=== PATIENT | female | born 1955 ===

== ENCOUNTER 2016-10-28 08:19 | Day surgery (SDC) | payer OTHER ==
[2016-10-28 08:47] VITALS: BMI 24.2
--- NOTE | 2016-10-28 11:12 | CP.SDSHP ---
Same Day Surgery H & P - History Proposed Procedure: EGD Pre-Op Diagnosis: SEE NOTES - Previous Medical/Surgical History Misc: Other Pain: 4.Moderate Pain - Allergies Allergies: Allergies Sulfa (Sulfonamide Antibiotics) Allergy (Intermediate, Verified 08/13/16 16:55) VOMITING - Physical Exam General Appearance: N Vital Signs: Vital Signs 10/28/16 08:59 Temperature 98.2 F Pulse Rate 62 Respiratory 19 Rate O2 Sat by Pulse 100 Oximetry Mental Status: Alert & Oriented x3 Neuro: WNL Heart: WNL Lungs: WNL GI: Other - {Optional Preform as Required} Breast: WNL Abdomen: Other Rectal: Other Integument: WNL : WNL Ortho: Other ENT: WNL - Impression Pt. Evaluated Today:Candidate for Anesthesia & Procedure: Yes - Date & Time Time: 11:12 Short Stay Discharge - Short Stay Discharge Admitting Diagnosis/Reason for Visit: DYSPEPSIA Disposition: HOME/ ROUTINE
[2016-10-28] MEDS ORDERED: Belladonna-Phenobarbital PO STA (11:13)
[2016-10-28] MEDS ORDERED: Pantoprazole 40 mg EC Tab PO STA (11:13)
[2016-10-28] MEDS ORDERED: Propofol 10 mg/ml Inj (20 ML) ONE (11:13)
[2016-10-28] MEDS ORDERED: Lactated Ringer's 1,000 ML IV SCH (11:15)
[2016-10-28 11:49] VITALS: TEMP 98.4
[2016-10-28 12:06] VITALS: BP 116/55; PULSE 60; RESP 18; O2SAT 100
== END 2016-10-28 12:29 | disposition home or self-care (01) ==
LOC: C.ENDO 08:19
PROVIDERS: ATTEND Specialist
DX: R10.13 Epigastric pain (principal); K20.9 Esophagitis, unspecified; K44.9 Diaphragmatic hernia without obstruction or gangrene
CPT/HCPCS: 43239; 88305; 88342; J2704; J7120

== ENCOUNTER 2017-07-05 10:15 | Emergency (ER) | payer OTHER ==
[2017-07-05 10:16] VITALS: BMI 24.2
[2017-07-05 10:28] VITALS: BP 117/70; PULSE 70; RESP 16; TEMP 98.7; O2SAT 99
--- NOTE | 2017-07-05 11:13 | C.PDOC ---
History Of Present Illness 62 yr old female presents to the ER with complaints of left gluteal area pain which runs down the left upper leg for the past 1 month. Patient states the pain is made worse when is sitting down, states she has been taking Tylenol and Ibuprofen with no relief. Denies falls, fever, dysuria, rash, weakness or numbness. Time Seen by Provider: 07/05/17 10:28 Chief Complaint (Nursing): Lower Extremity Problem/Injury History Per: Patient History/Exam Limitations: no limitations Onset/Duration Of Symptoms: Days (1 month) Past Medical History Reviewed: Historical Data, Nursing Documentation, Vital Signs Vital Signs: Last Vital Signs Temp 98.7 F 07/05/17 10:26 Pulse 70 07/05/17 10:26 Resp 16 07/05/17 10:26 BP 117/70 07/05/17 10:26 Pulse Ox 99 07/05/17 11:21 - Medical History PMH: Arthritis, Colonic Polyps, Gastritis, Gall Bladder Disease (CHOLELITHIASIS) Surgical History: Endoscopy (2 YEARS AGO), Tonsillectomy - [facility] Procedures ENDO EXCISION/DEST OF LESION OR TISSUE OF STOMACH (08/15/14) ENDOSC POLYPECTOMY OF LG INTEST (08/17/14) Family History: States: No Known Family Hx - Social History Hx Tobacco Use: No Hx Alcohol Use: No Hx Substance Use: No - Immunization History Hx Tetanus Toxoid Vaccination: No Hx Influenza Vaccination: No Hx Pneumococcal Vaccination: No Review Of Systems Except As Marked, All Systems Reviewed And Found Negative. Constitutional: Negative for: Fever Genitourinary: Negative for: Dysuria Musculoskeletal: Positive for: Other ((+) Left gluteal pain radiating down the left upper leg) Skin: Negative for: Rash Neurological: Negative for: Weakness, Numbness Physical Exam - Physical Exam Appears: Non-toxic, In Acute Distress (Mild pain) Skin: Warm, Dry, No Rash Head: Atraumatic, Normacephalic Oral Mucosa: Moist Neck: Normal, Normal ROM, Supple Cardiovascular: Rhythm Regular, No Murmur Respiratory: Normal Breath Sounds, No Rales, No Rhonchi, No Stridor, No Wheezing Back: Normal Inspection, No CVA Tenderness, No Paraspinal Tenderness Extremity: Normal ROM (At right hip), No Swelling, Other (Left hip worsening pain with ROM. No point tenderness at gluteal area or posterior thigh.) Neurological/Psych: Oriented x3, Normal Speech, Normal Motor, Normal Sensation Gait: Steady ED Course And Treatment O2 Sat by Pulse Oximetry: 99 (RA) Pulse Ox Interpretation: Normal Progress Note: PLAN: Flexeril PO, Prednisone PO & Toradol IM. Disposition Counseled Patient/Family Regarding: Studies Performed, Diagnosis, Need For Followup, Rx Given - Disposition Referrals: [facility] [Outside] Disposition: HOME/ ROUTINE Disposition Time: 11:35 Condition: STABLE Additional Instructions: SEGUIMIENTO CON ELKINS MDICO / CLNICA EN 1-2 CANDELARIO USE MEDICAMENTOS SEGN LO INDICADO REGRESE AL DAVID DE EMERGENCIA SI LOS SNTOMAS EMPEORAN Prescriptions: Cyclobenzaprine [Cyclobenzaprine HCl] 10 mg PO BID PRN #15 tab PRN Reason: Muscle Spasm Naproxen 375 mg PO BID PRN #20 tablet PRN Reason: pain predniSONE [predniSONE Tab] 40 mg PO DAILY #6 tab Instructions: Piriformis Syndrome (ED) Forms: [employer] (Latvian) Print Language: SOUTH KOREAN - POA Present On Arrival: None - Clinical Impression Clinical Impression: Piriformis syndrome of left side - Scribe Statement The provider has reviewed the documentation as recorded by the Pamelaiblance Ruvalcaba Provider Attestation: All medical record entries made by the Pamelaiblance were at my direction and personally dictated by me. I have reviewed the chart and agree that the record accurately reflects my personal performance of the history, physical exam, medical decision making, and the department course for this patient. I have also personally directed, reviewed, and agree with the discharge instructions and disposition.
== END 2017-07-05 11:40 | disposition home or self-care (01) ==
LOC: C.ER 10:15
DX: G57.02 Lesion of sciatic nerve, left lower limb (principal)
CPT/HCPCS: 96372; 99283; J1885

== ENCOUNTER 2017-10-25 15:40 | Emergency (ER) | payer OTHER ==
[2017-10-25 15:40] VITALS: BMI 24.2
[2017-10-25 17:34] LABS: BASO # 0.1 K/uL (0.0-0.2); BASO % 0.7 % (0.0-2.0); EOS # 0.4 K/uL (0.0-0.7); EOS % 3.9 % (0.0-4.0); HEMOGLOBIN 13.5 g/dL (11.0-16.0); LYMPH # 2.6 K/uL (1.0-4.3); LYMPH % 26.4 % (20.0-40.0); MEAN CELL VOLUME 81.1 fL (81.0-99.0); MEAN CORPUSCULAR HEMOGLOBIN 27.3 pg (27.0-31.0); MEAN CORPUSCULAR HGB CONC 33.6 g/dL (33.0-37.0); MEAN PLATELET VOLUME 7.9 fL (7.2-11.7); MONO # 0.7 K/uL (0.0-0.8); MONO % 6.8 % (0.0-10.0); NEUT # 6.1 K/uL (1.8-7.0); NEUT % 62.2 % (50.0-75.0); RBC 4.96 Mil/uL (3.80-5.20); WHITE BLOOD COUNT 9.7 K/uL (4.8-10.8)
[2017-10-25 17:52] LABS: ALB/GLOB RATIO 1.1 (1.0-2.1); ALBUMIN 4.3 g/dL (3.5-5.0); ALT/SGPT 14 U/L (9-52); AST/SGOT 22 U/L (14-36); BLOOD UREA NITROGEN 24 mg/dL (7-17); CALCIUM 9.4 mg/dl (8.6-10.4); GFR AFRICAN-AMERICAN > 60; GFR NON-AFRICAN AMERICAN > 60
--- NOTE | 2017-10-25 18:13 | C.PDOC ---
History Of Present Illness 62yo female, presents to ED with complaints of right sided chest pain, upper back pain and radiating to right arm for the past 4 days. She reports the chest pain is "sharp" and associated with deep breathing. She states the pain also worsens with movement. She denies any trauma, cough, nausea, vomiting, diaphoresis, hemoptysis, or shortness of breath. She has no other medical complaints. Time Seen by Provider: 10/25/17 16:40 Chief Complaint (Nursing): Upper Extremity Problem/Injury History Per: Patient History/Exam Limitations: no limitations Onset/Duration Of Symptoms: Days (x 4) Quality: Sharp Past Medical History Vital Signs: Last Vital Signs Temp 97.5 F L 10/25/17 18:43 Pulse 56 L 10/25/17 18:43 Resp 18 10/25/17 18:43 BP 163/72 H 10/25/17 18:43 Pulse Ox 98 10/25/17 19:03 - Medical History PMH: Arthritis, Colonic Polyps, Gastritis, Gall Bladder Disease Denies: Chronic Kidney Disease Surgical History: Endoscopy, Tonsillectomy - [facility] Procedures ENDO EXCISION/DEST OF LESION OR TISSUE OF STOMACH (08/15/14) ENDOSC POLYPECTOMY OF LG INTEST (08/17/14) Family History: States: Unknown Family Hx - Social History Hx Tobacco Use: No Hx Alcohol Use: No Hx Substance Use: No - Immunization History Hx Tetanus Toxoid Vaccination: No Hx Influenza Vaccination: Yes Hx Pneumococcal Vaccination: No Review Of Systems Except As Marked, All Systems Reviewed And Found Negative. Constitutional: Negative for: Sweats Cardiovascular: Positive for: Chest Pain (worsens with movement, deep breathing) Respiratory: Negative for: Cough, Hemoptysis Gastrointestinal: Negative for: Nausea, Vomiting Musculoskeletal: Positive for: Arm Pain (right arm pain) Physical Exam - Physical Exam Appears: Non-toxic Skin: Normal Color, Warm, No Rash Head: Atraumatic, Normacephalic Eye(s): bilateral: Normal Inspection Oral Mucosa: Moist Throat: No Erythema, No Exudate Neck: Normal ROM, Supple Chest: Symmetrical, Tenderness (Right chest wall tenderness) Cardiovascular: Rhythm Regular, No Friction Rub, No Murmur Respiratory: Normal Breath Sounds Gastrointestinal/Abdominal: Normal Exam, Soft, No Tenderness Back: Muscle Spasm (right trapezeus spasm) Extremity: Normal ROM, No Calf Tenderness, No Swelling Neurological/Psych: Oriented x3, Normal Speech, Normal Motor Gait: Steady ED Course And Treatment - Laboratory Results Result Diagrams: 10/25/17 17:31 10/25/17 17:31 ECG: Interpreted By Me, Viewed By Me ECG Rhythm: Sinus Rhythm ECG Interpretation: Normal Rate From EC O2 Sat by Pulse Oximetry: 98 (RA) Pulse Ox Interpretation: Normal - Radiology CXR: Interpreted by Me CXR Interpretation: Yes: No Acute Disease. No: Infiltrates Medical Decision Making Medical Decision Making: Plan: --EKG --CXR --Labs --Flexeril 10mg PO --Toradol 30mg IVP On re-exam, the patient reports improvement of symptoms. Patient is sleeping the bed comfortably. Lungs are CTA, HEart is RRR. abdomen is soft, non-tender and the patient is tolerating Po well. Ambulatory in the ED with steady gait. Follow up with the medical doctor within 1-2 days. Return if worsened. Disposition - Disposition Referrals: Sedrick Brock DO [Staff Provider] - Disposition: HOME/ ROUTINE Disposition Time: 18:15 Condition: FAIR Additional Instructions: Follow up with the medical doctor within 1-2 days. Return if worsened. Prescriptions: Cyclobenzaprine [Flexeril] 5 mg PO TID #21 tab Naproxen [Naprosyn] 500 mg PO BID #20 tab Instructions: Costochondritis Forms: [facility] (Danish), Work Excuse - Clinical Impression Clinical Impression: Costochondritis - PA / BARMAN / Resident Statement MD/ has reviewed & agrees with the documentation as recorded. - Scribe Statement The provider has reviewed the documentation as recorded by the Scribe Daniela Walls All medical record entries made by the Scribe were at my direction and personally dictated by me. I have reviewed the chart and agree that the record accurately reflects my personal performance of the history, physical exam, medical decision making, and the department course for this patient. I have also personally directed, reviewed, and agree with the discharge instructions and disposition.
[2017-10-25 18:43] VITALS: BP 163/72; PULSE 56; RESP 18; TEMP 97.5
[2017-10-25 19:03] VITALS: O2SAT 98
--- NOTE | 2017-10-26 10:25 | RAD ---
Examination: Chest two view comparison: 06/05/2017 Findings: No pulmonary infiltrate. No pleural effusion or pneumothorax. Normal heart size. No mediastinal or hilar lymphadenopathy. No congestive change No osseous abnormality appreciated. Impression: No pulmonary infiltrate.
--- NOTE | 2017-10-26 11:55 | CARD ---
APPROVED REPORT EKG Measurement Heart [id number] <Conclusion> Normal sinus rhythm Normal ECG
== END 2017-10-25 19:00 | disposition home or self-care (01) ==
LOC: C.ER 15:40
DX: M94.0 Chondrocostal junction syndrome [Tietze] (principal)
CPT/HCPCS: 71046; 80053; 84484; 85025; 93005; 96374; 99284; J1885

== ENCOUNTER 2018-03-12 10:29 | Emergency (ER) | payer OTHER ==
[2018-03-12 10:30] VITALS: BMI 24.2
[2018-03-12 10:40] VITALS: BP 139/70; PULSE 66; RESP 16; TEMP 98.1; O2SAT 98
--- NOTE | 2018-03-12 11:17 | C.PDOC ---
History Of Present Illness <Janell Palomo - Last Filed: 03/12/18 11:29> <Wali Allan - Last Filed: 03/12/18 11:57> CC: Left wrist pain Patient is a 63 year old female with no known past medical history, who present to the ED with complaints of left wrist pain that started yesterday during day while she was unpacking some boxes, however, pain worsened during night and with extreme tightness. Patient admits to very limited range of motion at the wrist join since yesterday evening and this morning. Patient denies any trauma or old injuries. Patient has noted bilateral joint wrist pain for the past 1- 2 years but increase intensity on her left wrist yesterday. 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 (JerrellLisefrankie Quezada) <Janell Palomo - Last Filed: 03/12/18 11:29> History Per: Patient History/Exam Limitations: no limitations Onset/Duration Of Symptoms: Days Current Symptoms Are (Timing): Still Present Severity: Moderate Pain Scale Rating Of: 6 Location: Left wrist joint Quality: Heaviness <Wali Allan - Last Filed: 03/12/18 11:57> Chief Complaint (Nursing): Upper Extremity Problem/Injury Past Medical History - Medical History PMH: Arthritis, Colonic Polyps, Gastritis, Gall Bladder Disease Denies: Chronic Kidney Disease Surgical History: Endoscopy, Tonsillectomy Family History: States: Unknown Family Hx - Social History Hx Tobacco Use: No Hx Alcohol Use: No Hx Substance Use: No - Immunization History Hx Tetanus Toxoid Vaccination: No Hx Influenza Vaccination: Yes Hx Pneumococcal Vaccination: No <JerrellLise krishnamurthyfrankie Damien - Last Filed: 03/12/18 11:57> Vital Signs: Last Vital Signs Temp 98.1 F 03/12/18 10:35 Pulse 66 03/12/18 10:35 Resp 16 03/12/18 10:35 BP 139/70 03/12/18 10:35 Pulse Ox 98 03/12/18 11:28 - [facility] Procedures ENDO EXCISION/DEST OF LESION OR TISSUE OF STOMACH (08/15/14) ENDOSC POLYPECTOMY OF LG INTEST (08/17/14) Review Of Systems Constitutional: Negative for: Fever, Chills Eyes: Negative for: Pain ENT: Negative for: Ear Pain, Ear Discharge Cardiovascular: Negative for: Chest Pain, Palpitations Respiratory: Negative for: Cough, Shortness of Breath Musculoskeletal: Positive for: Hand Pain (Left hand pain that is localized to the wrist joint ) Skin: Negative for: Rash, Lesions Neurological: Positive for: Other (Heaviness of the left wrist ). Negative for : Weakness, Numbness <Wali Allan - Last Filed: 03/12/18 11:57> Physical Exam - Physical Exam Appears: Well Skin: Normal Color, Warm Head: Atraumatic, Normacephalic Eye(s): bilateral: Normal Inspection, PERRL, EOMI Nose: Normal Oral Mucosa: Moist Neck: Normal, Normal ROM Cardiovascular: Rhythm Regular Respiratory: Normal Breath Sounds, No Decreased Breath Sounds, No Accessory Muscle Use, No Rales Gastrointestinal/Abdominal: Normal Exam, Bowel Sounds, Soft Extremity: Other (Normal ROM at the shoulder pain. Decrease ROM at the wrist joint with ulnar, radial, flexion and extension ) Extremity: Left: Bony Point Tenderness (Left wrist joint (Dorsum and plantar surface)), Limited ROM To Joint (Left wrist ), Bilateral: Atraumatic Pulses: Left Brachial: Normal, Left Radial: Normal DTR: Bicep (R): 2+, Bicep (L): 2+ Neurological/Psych: Oriented x3, Normal Speech, Normal Cognition Extremity: Right: No Drift, Left: No Drift, Upper: No Drift <Wali Allan - Last Filed: 03/12/18 11:57> ED Course And Treatment O2 Sat by Pulse Oximetry: 98 <Wali Allan - Last Filed: 03/12/18 11:57> Supervising Attending Note - Supervising Attending Note Comment: RESIDENT DR ALLAN - Attestation: I have personally seen and examined this patient.: Yes I have fully participated in the care of the patient.: Yes I have reviewed all pertinent clinical information, including history, physical exam and plan: Yes <Janell Palomo - Last Filed: 03/12/18 11:29> <Wali Allan - Last Filed: 03/12/18 11:57> - Notes: Notes:: C/O ACUTE EXAC OF CHRONIC BL WRIST PAIN SINCE YEST. NO TRAUMA. LIMITED MOVEMENT DUE TO PAIN. PREV EVAL BY PMD FOR SAME, ON MOTRIN 400 MG BUT NO IMPROVE FOR CURRENT EPISODE. EXAM ABOVE. HIGHER DOSE MOTRIN, ULRAM, SPLINT, FU PMD/RHEUM (Janell Palomo) Medical Decision Making <Janell Palomo - Last Filed: 03/12/18 11:29> <Wali Allan - Last Filed: 03/12/18 11:57> Medical Decision Making: Left wrist X-ray: No Fracture (Wali Allan) Disposition <DeweyJanell - Last Filed: 03/12/18 11:29> Discussed With DrNico: Janell Palomo - Disposition Disposition Time: 11:39 <Wali Allan - Last Filed: 03/12/18 11:57> - Disposition Disposition: HOME/ ROUTINE Condition: STABLE Additional Instructions: Please discharge patient home Please use Over the counter motrin 3-4 tablets as needed for pain control Please use Ultram 50mg PO HS for pain as needed Please follow up with your PMD, Dr. Brock within 1 week for further evaluation and possible Orthopedist or Rheumatology referral Please keep splint on in order to immobilize the joint and reduce pain Prescriptions: traMADol [Ultram] 50 mg PO HS PRN #15 tab PRN Reason: Pain, Severe (8-10) Instructions: Osteoarthritis (DC), Joint Pain Forms: [facility] (Serbian), General Discharge Instructions - Clinical Impression Clinical Impression: Pain in joint of left wrist, Arthritis of carpometacarpal joint
--- NOTE | 2018-03-12 13:49 | RAD ---
Date of service: 03/12/2018 PROCEDURE: Left Wrist Radiographs. HISTORY: PAIN COMPARISON: None. FINDINGS: BONES: No evidence of acute displaced fracture nor dislocation. The osseous structures appear intact. No cortical destructive changes. JOINTS: Normal. No dislocation. No significant osteoarthritis SOFT TISSUES: Normal. OTHER FINDINGS: None. IMPRESSION: No evidence of acute displaced fracture nor dislocation.
== END 2018-03-12 12:07 | disposition home or self-care (01) ==
LOC: C.ER 10:29
DX: M25.532 Pain in left wrist (principal); M19.032 Primary osteoarthritis, left wrist

== ENCOUNTER 2018-07-05 15:38 | Emergency (ER) | payer OTHER ==
[2018-07-05 15:38] VITALS: BMI 24.2
[2018-07-05 15:58] VITALS: BP 159/82
[2018-07-05] MEDS ORDERED: Lidocaine 5% Patch TD STA (17:03)
[2018-07-05] MEDS ORDERED: Lidocaine 5% Patch TD ONE (17:39)
--- NOTE | 2018-07-05 17:50 | C.PDOC ---
History Of Present Illness 63 y/o female, w/PMhx of borderline diabetes, presents to the ER for evaluation of right sided chest wall pain which has been present for the past 3 days. Patient states that the pain radiates into the right arm and the pain is worse with movement and increases with palpitations and inspirations. 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 Time Seen by Provider: 07/05/18 16:52 Chief Complaint (Nursing): Chest Pain History Per: Patient History/Exam Limitations: no limitations Onset/Duration Of Symptoms: Days Current Symptoms Are (Timing): Still Present Severity: Moderate Past Medical History Reviewed: Historical Data, Nursing Documentation, Vital Signs Vital Signs: Last Vital Signs Temp 97.9 F 07/05/18 15:54 Pulse 18 L 07/05/18 15:54 Resp 16 07/05/18 15:54 BP 159/82 H 07/05/18 15:54 Pulse Ox 100 07/05/18 15:54 - Medical History PMH: Arthritis, Colonic Polyps, Gastritis, Gall Bladder Disease Denies: Chronic Kidney Disease Surgical History: Endoscopy, Tonsillectomy - [facility] Procedures ENDO EXCISION/DEST OF LESION OR TISSUE OF STOMACH (08/15/14) ENDOSC POLYPECTOMY OF LG INTEST (08/17/14) Family History: States: No Known Family Hx - Social History Hx Tobacco Use: No Hx Alcohol Use: No Hx Substance Use: No - Immunization History Hx Tetanus Toxoid Vaccination: No Hx Influenza Vaccination: Yes Hx Pneumococcal Vaccination: No Review Of Systems Except As Marked, All Systems Reviewed And Found Negative. Constitutional: Negative for: Fever, Chills Cardiovascular: Positive for: Chest Pain Respiratory: Negative for: Shortness of Breath Gastrointestinal: Negative for: Nausea, Vomiting Physical Exam - Physical Exam Appears: Non-toxic, No Acute Distress Skin: Normal Color, Warm, Dry Head: Atraumatic, Normacephalic Eye(s): bilateral: Normal Inspection Nose: Normal Oral Mucosa: Moist Neck: Supple Chest: Symmetrical, Tenderness (right sided tenderness) Cardiovascular: Rhythm Regular Respiratory: Normal Breath Sounds, No Rales, No Rhonchi, No Wheezing Gastrointestinal/Abdominal: Normal Exam, Soft, No Tenderness, No Guarding, No Rebound Neurological/Psych: Oriented x3, Normal Speech ED Course And Treatment ECG: Interpreted By Me, Viewed By Me ECG Rhythm: Sinus Rhythm Interpretation Of ECG: NSR with flipped T's in lateral leads Rate From EC O2 Sat by Pulse Oximetry: 100 (RA) Pulse Ox Interpretation: Normal Medical Decision Making Medical Decision Making: Plan: --Ibuprofen IV --Tylenol PO Patient feeling much better Disposition Counseled Patient/Family Regarding: Diagnosis, Need For Followup, Rx Given - Disposition Disposition: HOME/ ROUTINE Disposition Time: 18:39 Condition: STABLE Prescriptions: Cyclobenzaprine [Cyclobenzaprine HCl] 10 mg PO TID #12 tab Ibuprofen [Motrin] 600 mg PO TID #15 tab Instructions: Costochondritis (DC) Forms: [facility] (Norwegian), Gen Discharge Inst Norwegian, Work Excuse - POA Present On Arrival: None - Clinical Impression Clinical Impression: Chest wall pain - Scribe Statement The provider has reviewed the documentation as recorded by the Joe Armenta Provider Attestation: All medical record entries made by the Joe were at my direction and personally dictated by me. I have reviewed the chart and agree that the record accurately reflects my personal performance of the history, physical exam, medical decision making, and the department course for this patient. I have also personally directed, reviewed, and agree with the discharge instructions and disposition.
[2018-07-05 18:32] VITALS: PULSE 64; RESP 18; TEMP 98.6
[2018-07-05 18:39] VITALS: O2SAT 100
--- NOTE | 2018-07-06 21:52 | CARD ---
APPROVED REPORT Date of service: 07/05/2018 EKG Measurement Heart [id number] <Conclusion> Normal sinus rhythm Possible Left atrial enlargement T wave abnormality, consider anterolateral ischemia Abnormal ECG
== END 2018-07-05 18:59 | disposition home or self-care (01) ==
LOC: C.ER 15:38
DX: R07.89 Other chest pain (principal)